=== PATIENT | male | born 1955 | race Caucasian/White ===

== ENCOUNTER 2018-05-15 05:37 | Day surgery (SDC) | payer OTHER ==
[~2018-05-15 05:37] MED LIST: INTEGRA F CAPS1 EACH PO; INTESTINEX680 MG PO; PROTONIX40 MG PO; TRAM1TAB98 PO
== END 2018-05-15 10:35 | disposition home or self-care (01) ==
LOC: AMB-ENDOS 05:37
DX: K57.30 Diverticulosis of large intestine without perforation or abscess without bleeding (principal); K64.8 Other hemorrhoids

== ENCOUNTER 2019-07-16 09:55 | Day surgery (SDC) | payer OTHER | END 2019-07-16 14:05 | disposition home or self-care (01) | LOC: AMB-ENDOS 09:55 | DX: K62.89 Other specified diseases of anus and rectum (principal); K57.30 Diverticulosis of large intestine without perforation or abscess without bleeding; K64.8 Other hemorrhoids ==